=== PATIENT | male | born 1945 | race Caucasian/White ===

== ENCOUNTER 2022-07-07 11:08 | Inpatient (IN) ==
[2022-07-07] MEDS ORDERED: ASPIRIN CHEW 324 MG PO STA (11:28)
[2022-07-07 11:50] LABS: Basophils # (auto) 0.07 K/uL (0-0.2); Basophils % (auto) 0.7 %; Eosinophils # (auto) 0.16 K/uL (0-0.50); Eosinophils % (auto) 1.7 %; Hematocrit (blood only) 34.8 % (42.0-52.0); Hemoglobin 11.5 g/dl (14.0-18.0); Immature Granulocytes # (auto) 0.03 K/uL (0.01-0.20); Immature Granulocytes % (auto) 0.3 %; Lymphocytes # (auto) 1.24 K/uL (1.2-3.4); Lymphocytes % (auto) 12.8 %; Mean Corpuscular Hemoglobin 29.9 pg (25.0-34.0); Mean Corpuscular Volume 90.4 fL (80.0-100.0); Mean Platelet Volume 11.8 fL (9.4-12.4); Monocytes # (auto) 0.75 K/uL (0.11-0.59); Monocytes % (auto) 7.8 %; Neutrophils # (auto) 7.42 K/uL (1.40-6.50); Neutrophils % (auto) 76.7 %; Platelet Count 300 K/uL (130-400); RDW Coefficient of Variation 13.7 % (11.5-14.5); Red Blood Count 3.85 M/uL (4.70-6.10); White Blood Count 9.67 K/ul (4.8-10.8)
--- NOTE | 2022-07-07 11:53 | XRay Report ---
SINGLE VIEW CHEST CLINICAL HISTORY: Atypical chest pain. Dyspnea. FINDINGS: An AP, portable, upright chest radiograph is obtained. No prior studies are available for c omparison at the time of dictation. The patient is status post midline sternotomy. The heart is enlar ged. The pulmonary vasculature is noncongested. There is bibasilar scarring/atelectasis, left greater than right. No airspace consolidation or large pleural effusion is identified. Pleural thickening is seen in the lateral left lower lung. No pneumothorax is seen. The skeletal structures are osteopenic . The bony thorax is grossly intact. IMPRESSION: 1. Cardiomegaly with no acute cardiopulmonary abnormality. 2. Pleural thickening is seen laterally within the left mid to lower lung. This is of indeterminate e tiology and significance. Clinical correlation will be required. ACT 112: Negative or not required by law. Electronically signed by: Miguel Sandoval M.D. 07/07/2022 11:51 AM
[2022-07-07 12:54] LABS: Albumin Level 3.9 gm/dl (3.4-5.0); Bilirubin,Total 0.3 mg/dl (0.2-1.0); Calcium 8.9 mg/dl (8.5-10.1); Potassium 5.3 mmol/L (3.5-5.1)
[2022-07-07 13:00] LABS: Albumin Globulin Ratio 1.3 (0.9-2); BUN Creatinine Ratio 17.6 (10-20); Creatinine Clr Calc Pharmacy 17.3 ml/min; Est GFR (African American) 19.2 ml/min; Est GFR (Non-African American) 16.6 ml/min; Globulin 2.9 gm/dl (2.5-4.0); Total Protein 6.8 gm/dl (6.0-8.3)
[2022-07-07] MEDS ORDERED: SODIUM CHLORIDE 0.9% 1000ML 1,000 ML IV SCH (13:15)
[2022-07-07 13:16] LABS: Troponin I High Sensitivity 3246.8 pg/ml (0-20)
[2022-07-07] MEDS ORDERED: Heparin IV Adult Wt-Based Low-Dose WITH Bolus Protocol STA (13:17)
[2022-07-07] MEDS ORDERED: HEPARIN SOD (PORCINE) 1000 UNIT/ML IV ONE (13:33)
[2022-07-07] MEDS: HEPARIN SODIUM/DEXTROSE 25,000 UNITS/500 ML BAG IV SCH (13:37)
[2022-07-07 13:49] LABS: Partial Thromboplastin Ratio 0.9
[2022-07-07] MEDS ORDERED: NITROGLYCERIN 2% OINTMENT 30GM TUBE EXT ONE (14:04)
--- NOTE | 2022-07-07 14:14 | History & Physical Report ---
Date of Service July 07, 2022 Assessment & Plan (1) NSTEMI (non-ST elevated myocardial infarction): (2) CAD (coronary artery disease): (3) Hypertension: (4) Hyperlipidemia: (5) CKD (chronic kidney disease) stage 4, GFR 15-29 ml/min: (6) Statin intolerance: Plan This is a 77-year-old male who has significant PMH of CAD with history of CABG x3 in 2007 MEDINA to LAD, SVG to diagonal, SVG to OM, mitral and tricuspid regurgitation, HTN, CKD stage III-IV, with baseline creatinine of 3.6, history of renal artery stenosis status post stent, and HLD who presents to ED secondary to chest tightness/sob x 5 days. NSTEMI CAD hx of CABG in 2007 ( MEDINA to LAD, SVG to Diagonal, SVG to OM), hx of ROMINA x 2 in 2018 HTN HLD admit to PCU consult cardiology continue Heparin gtt received full dose ASA in ED currently CP free continue daily ASA, plavix, Metoprolol and pt takes repatha he states he no longer takes Statin due to leg pain will hold repatha while inpt, pt states he is due 07/08, he takes [id number] obtain echo cycle trop make npo after midnight in event intervention warranted CKD-4 baseline cr 3.6 bun/cr stable monitor, avoid nephrotoxic agents Hyperkalemia place on low k diet monitor bmp DVT ppx: IV heparin Dispo: admit to tele DNR/DNI PCP: A total of 75 minutes was spent with greater than 50% of that time personally viewing all current laboratory work and diagnostic imaging studies obtained in the ED. Additionally, I was able to view the patients past medication reconciliation and history with direct visualization in the patients chart. Included in the time above, a portion of that time was spent assessing the patient while discussing and collaborating with specialists, if necessary, and making medical decision making on treatment plan. All of the above was collaborated with Dr. Avina. Please see addendum for further details. History of Present Illness Chief Complaint: Chest tightness/SOB x 5 days. Primary Care Provider: David Narayanan, This is a 77-year-old male who has significant PMH of CAD with history of CABG x3 in 2007 MEDINA to LAD, SVG to diagonal, SVG to OM, mitral and tricuspid regurgitation, HTN, CKD stage III-IV, with baseline creatinine of 3.6, history of renal artery stenosis status post stent, and HLD who presents to ED secondary to chest tightness/sob x 5 days. Sx started Friday evening where he got chest tightness and sob. He further complains of heart racing. These sx would come and go and would resolve if just resting. Typically he walks 3-4 miles every day. Even with just minimal exertion he was getting chest tightness and sob. Sx seemed to be worse at night. Over past several months he noted to be more SOB with walking and even more so up hill. Now even with 100 yards he gets chest tightness. Sx are mostly substernal and does occasionally get pain to R arm. He describes pain Yesterday he went to mail box and had to stop ~ 20 times to catch breath. He denies any dizziness, lightheaded, syncope, vision changes. uri sx, cough, hemoptysis, n/v/d, abd pain, change in bowel or urinary habits. He was seen and evaluated at [facility] on Friday. They wanted him to be admitted; however they told him they couldn't do anything at this hospital due to no coronary intervention. [facility] get records to Dr. Humphreys. Of significance patient does have previous history of CABG x3 in 2007. He further underwent cardiac catheterization at [facility] on 02/25 which showed severe three-vessel cowlitz CAD with severe stenosis of vein graft to diagonal, severe stenosis of non-bypassed calcified right coronary, and patent MEDINA to LAD and patent vein graft to obtuse marginal. On 04/10/2028 he underwent a successful rotational atherectomy, angioplasty, stenting of the distal and mid right coronary artery with insertion of 2 drug-eluting stents. He is currently under the cardiac care of Dr. Humphreys. He does have history of CKD for which she follows Dr. Quiñones of nephrology. Last echocardiogram per recent cardiology note was on 08/30/2021 which revealed EF 50 to 54%, mild LVH, left atrium mildly enlarged, aortic valve mildly calcified, mild mitral regurg and mild tricuspid regurg. He previously was having leg pain, but this has since resolved after stopping statin and switching to repatha. In ED pt remained hemodynamically stable. He is currently chest pain free. His ECG revealed st and t wave changes in lateral leads. His initial trop was 3246.8, bun 60, cr 2.40 and K 5.3. He took a full strength asa today and was placed on IV heparin and nitro paste. Allergies Allergy/AdvReac Type Severity Reaction Status Date / Time No Known Drug Allergies Allergy Unknown . Verified 07/07/22 14:22 Home Medications Medication Instructions Recorded Confirmed Type amlodipine 10 mg tablet 10 mg PO QAM 06/01/19 07/07/22 History clopidogrel 75 mg tablet 75 mg PO QAM 06/01/19 07/07/22 History aspirin 81 mg chewable tablet 81 mg PO DAILY 07/07/22 07/07/22 History calcitriol 0.25 mcg capsule 0.125 mcg PO DAILY 07/07/22 07/07/22 History cholecalciferol (vitamin D3) 10 10 mcg PO Q OTHER DAY 07/07/22 07/07/22 History mcg (400 unit) capsule (Vitamin D3) evolocumab 140 mg/mL subcutaneous 140 mg subcut USEASDIRECTD 07/07/22 07/07/22 History pen injector (Repatha SureClick) metoprolol succinate 25 mg 25 mg PO DAILY 07/07/22 07/07/22 History tablet,extended release 24 hr Past Med/Surg History Medical History (Updated 07/07/22 @ 15:08 by Mary Mariscal PA-C) CAD (coronary artery disease) CABG 12 years ago, stents - last in 2017 CKD (chronic kidney disease) stage 4, GFR 15-29 ml/min Hyperlipidemia Hypertension Osteoarthritis 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> NO ISSUES > DOESN'T FOLLOW WITH ANYONE Statin intolerance Surgical History History of bronchoscopy 6 YRS AGO[place] [facility] [place] History of cardiac cath LAST ONE JAN 2018 WITH STENT History of carpal tunnel release RIGHT History of colonoscopy History of coronary artery bypass graft 3 TOTAL> 12 YRS AGO> [facility] > FOLLOWS DR. BUNN >RAJESH TOBIAS History of heart artery stent 3 TOTAL> LAST ONE IN JAN 2018 > [facility] [place] History of tooth extraction Hx of vasectomy Family History Other No significant family history Social History (Updated 07/07/22 @ 14:37 by Mary Mariscal PA-C) Smoking Status: Former smoker Smoking End Date: 50 years ago; Second Hand Exposure: Yes; Hx Alcohol Use: Yes Alcohol type: wine and hard liquor Hx Substance Use: No Preferred Language: Persian Communication Ability: Effective Psychiatric Technician Required: No Beliefs That Will Affect Care: None Current Living Situation: Spouse 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 Avina addendum for physical exam findings. Results & Data Results & Data ([facility]) Vital Signs (Past 12 Hours) Vital Signs Temp Pulse Resp BP Pulse Ox O2 Del Method 07/07/22 13:30 60 23 154/79 H 98 07/07/22 12:30 59 L 20 137/71 100 Room Air 07/07/22 12:00 62 16 136/74 99 Room Air 07/07/22 11:30 70 19 148/79 H 99 Room Air 07/07/22 11:30 71 07/07/22 11:22 88 18 176/80 H 99 Room Air 07/07/22 11:13 36.6 C 81 16 121/76 98 Room Air Diagnostic Findings Chest X-Ray 07/07/22 11:21 SINGLE VIEW CHEST CLINICAL HISTORY: Atypical chest pain. Dyspnea. FINDINGS: An AP, portable, upright chest radiograph is obtained. No prior studies are available for comparison at the time of dictation. The patient is status post midline sternotomy. The heart is enlarged. The pulmonary vasculature is noncongested. There is bibasilar scarring/atelectasis, left greater than right. No airspace consolidation or large pleural effusion is identified. Pleu ral thickening is seen in the lateral left lower lung. No pneumothorax is seen. The skeletal structures are osteopenic. The bony thorax is grossly intact. IMPRESSION: 1. Cardiomegaly with no acute cardiopulmonary abnormality. 2. Pleural thickening is seen laterally within the left mid to lower lung. This is of indeterminate etiology and significance. Clinical correlation will be required. ACT 112: Negative or not required by law. Electronically signed by: Miguel Sandoval M.D. 07/07/2022 11:51 AM Medications Administered Medication List Sodium Chloride (Nss 1000ml) 1,000 mls @ 125 mls/hr IV .Q8H USHA Stop: 08/06/22 13:14 Last Infusion: 07/07/22 14:29 Dose: 0 mls/hr Documented By: Admin: 07/07/22 14:19 Dose: 125 mls/hr Documented By: DARIANA Heparin Sodium/Dextrose (Heparin Sodium/Dextrose) 25,000 units in 500 mls @ 0.02 mls/hr IV .Q24H [facility]; Protocol Stop: 08/06/22 13:44 Last Admin: 07/07/22 13:37 Dose: 850 units/hr, 17 mls/hr Documented By: LIDIA Co-signed By: LORENZO Discontinued Medications Aspirin (Aspirin Chew 324 Mg) 324 mg PO NOW STA Stop: 07/07/22 11:29 Last Admin: 07/07/22 11:33 Dose: 324 mg Documented By: DARIANA Heparin Sodium (Porcine) (Heparin Sod (Porcine) 1000 Unit/Ml) 1 units IV NOW ONE Stop: 07/07/22 13:34 Last Admin: 07/07/22 13:38 Dose: 4,000 units Documented By: LIDIA Co-signed By: LORENZO Nitroglycerin (Nitroglycerin 2% Ointment 30gm Tube) 0.5 inch EXT NOW ONE Stop: 07/07/22 14:05 Last Admin: 07/07/22 14:17 Dose: 0.5 inch Documented By: DARIANA ECG Rate (beats per minute): 67 Rhythm: normal sinus Findings: + RBBB Additional Comments: lateral ST and T wave changes I, AVL, V5, V6 COVID-19 Results Results COVID-19 Adm Lab Results: RBC 3.85 M/uL (4.70-6.10) L 07/07/22 WBC 9.67 K/ul (4.8-10.8) 07/07/22 Hgb 11.5 g/dl (14.0-18.0) L 07/07/22 Hct 34.8 % (42.0-52.0) L 07/07/22 Plt Count 300 K/uL (130-400) 07/07/22 Neutrophils (%) (Auto) 76.7 % 07/07/22 Lymphocytes (%) (Auto) 12.8 % 07/07/22 Monocytes # (Auto) 0.75 K/uL (0.11-0.59) H 07/07/22 Eosinophils # (Auto) 0.16 K/uL (0-0.50) 07/07/22 Immature Granulocyte % (Auto) 0.3 % 07/07/22 Neutrophils # (Auto) 7.42 K/uL (1.40-6.50) H 07/07/22 Lymphocytes # (Auto) 1.24 K/uL (1.2-3.4) 07/07/22 Monocytes # (Auto) 0.75 K/uL (0.11-0.59) H 07/07/22 Eosinophils # (Auto) 0.16 K/uL (0-0.50) 07/07/22 Basophils # (Auto) 0.07 K/uL (0-0.2) 07/07/22 Immature Granulocyte # (Auto) 0.03 K/uL (0.01-0.20) 3 Na 141 mmol/L (136-145) 07/07/22 K 5.3 mmol/L (3.5-5.1) H 07/07/22 Cl 111 mmol/L (98-107) H 07/07/22 CO2 22 mmol/L (21-32) 07/07/22 Anion Gap 8 (3-11) 07/07/22 BUN 60 mg/dl (6-23) H 07/07/22 Creatinine 3.40 mg/dl (0.6-1.4) H 07/07/22 BUN/Creatinine Ratio 17.6 (10-20) 07/07/22 Glucose Level 110 mg/dl (70-99(Fasting)) H 07/07/22 Ca 8.9 mg/dl (8.5-10.1) 07/07/22 Total Bilirubin 0.3 mg/dl (0.2-1.0) 07/07/22 AST/SGOT 24 U/L (13-39) 07/07/22 ALT/SGPT 13 U/L (7-52) 07/07/22 Alkaline Phosphatase 58 U/L (34-104) 07/07/22 Total Protein 6.8 gm/dl (6.0-8.3) 07/07/22 Albumin 3.9 gm/dl (3.4-5.0) 07/07/22 Globulin 2.9 gm/dl (2.5-4.0) 07/07/22 Albumin/Globulin Ratio 1.3 (0.9-2) 07/07/22 PTT 25.0 Seconds (21.0-31.0) 07/07/22 SARS-CoV-2, RNA, NAAT NEGATIVE (NEGATIVE) 07/07/22 Chest X-Ray 07/07/22 Code Status & VTE Plan Code Status DNR/DNI Supervising Physician Co-Signing Physician Notes Patient seen and examined independently. Discussed with Margie Mariscal PA-C Past medical history of CAD status post CABG in 2007, ROMINA in 2018, CKD presents to the hospital with chest pain ongoing for last 5 days which has gradually increased in frequency. On presentation to the ED, he was hypertensive, saturating well in room air and afebrile. EKG shows normal sinus rhythm with right bundle branch block(chronic), ST depression in T wave changes in lateral leads. High-sensitivity troponin elevated to 3246 Chest x-ray personally reviewed; no signs of fluid overload. Creatinine at baseline of 3.6. Slightly hyperkalemic with a potassium of 5.2. He was started on heparin drip for NSTEMI. Cardiology was consulted. He was also started on Nitropaste. On examination; Constitutional: WD/WN, vitals as above, NAD, sitting up in bed, pleasant, conversing easily Respiratory: Bilateral vesicular breath sound Cardiovascular: RRR, no murmur, no edema Vessels: no JVD or carotid bruit Chest: Scar present Abdomen: normal bowel sounds, soft, nontender, no hepatosplenomegaly Musculoskeletal: no cyanosis or clubbing, extremities motor strength 5/5 Skin: no rashes, warm and dry normal turgor Neurologic: PERRL, EOMI, accommodation nl, no face palsy, no dysarthria CN's II- XI intact bilaterally and moves all extremities Psychiatric: A+Ox3, euthymic affect Lymphatic: no cervical or axillary lymphadenopathy : deferred Assessment/plan NSTEMIstarted on heparin drip. Cardiology consulted and informed; no further recommendation at present. Echocardiogram. Continue on aspirin, Plavix and metoprolol. Obtain lipid panel in a.m.; patient off statin presently. Trend troponin. N.p.o. from midnight for possible intervention. Hyperkalemialow potassium diet. BMP in AM. CKDbaseline creatinine of 3.6. Avoid nephrotoxic agent.
[2022-07-07] MEDS ORDERED: POLYETHYLENE (MIRALAX) 17 GM PACK PO PRN (15:28)
[2022-07-07] MEDS ORDERED: ONDANSETRON INJ 2 MG/ML 2 ML VIAL IV PRN (15:28)
--- NOTE | 2022-07-07 17:24 | Emergency Department Note ---
Impression & Plan NSTEMI (non-ST elevated myocardial infarction), CKD (chronic kidney disease) stage 4, GFR 15-29 ml/min ED Provider Note CHIEF COMPLAINT: Shortness of breath HISTORY OF PRESENT ILLNESS: This 77-year-old patient with a history of CAD status post CABG and stenting x3, chronic kidney disease presents to the emergency department with complaints of increased shortness of breath. He states he went to an outside hospital 2 days ago and was told he was likely suffering from heart attack or unstable angina. The patient was told that they did not have a catheterization lab, thus he decided to go home. Per records and the patient's hands, his high-sensitivity troponin was 1900. Patient states he does not have any pain at this time but rather just shortness of breath. He does feel that his breathing symptoms have gotten worse. 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 He denies any recent illnesses, fever, cough, vomiting or diarrhea. REVIEW OF SYSTEMS: A review of systems was performed with positives and pertinent negatives listed in the history of present illness. 10 systems were reviewed and are otherwise negative. ALLERGIES: see below MEDICATIONS: see below PMH: see below SOCIAL HISTORY: see below DDx:Cardiac ischemia, aortic dissection, pulmonary embolism, pneumothorax, p neumonia, pericarditis, myocarditis, esophageal rupture, GERD, cholecystitis, pancreatitis, musculoskeletal, as well as other pathologies. PHYSICAL EXAM: Vital signs reviewed. General: Well-appearing 77-year-old male, in no significant distress. HEENT: No scleral icterus, PERRLA, neck supple. Moist mucous membranes. Cardiovascular: Regular rate and rhythm, no extra sounds. Systolic ejection mu rmur. Pulmonary: Clear to auscultation bilaterally, normal work of breathing. Abdomen: Soft, nontender, nondistended, positive bowel sounds. Musculoskeletal: Atraumatic, no peripheral edema. Neurologic: Patient awake alert and oriented x 3, speech is clear Skin: Warm, dry, no rash EMERGENCY DEPARTMENT COURSE/MDM: This patient was evaluated and appeared to be in no significant distress. IV access was obtained and laboratory work was drawn. Records from [facility] were attempted however they were only able to send a chest x-ray read which was reviewed. Patient's EKG reveals no evidence of ST elevation, there are nonspecific ST changes laterally. Patient was given 324 mg of aspirin to chew. Chest x-ray was performed and reveals no evidence of acute failure. Laboratory work reveals a troponin of 3246 and a creatinine of 3.4. [facility] records indicate this is the patient's baseline. I discussed the case with [facility] cardiology, Dr. Giraldo. As the patient does not have any pain at this time, we will start heparin drip and admit for further management. Patient did remain stable in the emergency department. He is family were informed of the findings and plan. The [facility] hospitalist was consulted for further management. MONITORING: An order for cardiac monitoring was placed and the patient is noted to be in a normal sinus rhythm at 70 beats per minute. RADIOLOGY: Chest x-ray to my interpretation reveals no evidence of focal lung consolidation or failure. Otherwise defer to radiology EKG: EKG to my interpretation reveals normal sinus rhythm at 67 bpm, right bundle branch block. Previous inferior infarct, lateral ST/T wave abnormality. DISPOSITION: Admission I have personally spent greater than 40 minutes of critical care time in the dir ect management of this patient. This includes bedside care, interpretation of diagnostic studies, and testing, discussion with consultants, patient, and family members, and other required patient management activities. This 40 minutes is in excess of all separately billable procedures. 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 Verified 07/07/22 14:22 Home Meds Home Medications Medication Instructions Recorded Confirmed amlodipine 10 mg tablet 10 mg PO QAM 06/01/19 07/07/22 clopidogrel 75 mg tablet 75 mg PO QAM 06/01/19 07/07/22 aspirin 81 mg chewable tablet 81 mg PO DAILY 07/07/22 07/07/22 calcitriol 0.25 mcg capsule 0.125 mcg PO DAILY 07/07/22 07/07/22 cholecalciferol (vitamin D3) 10 10 mcg PO Q OTHER DAY 07/07/22 07/07/22 mcg (400 unit) capsule (Vitamin D3) evolocumab 140 mg/mL subcutaneous 140 mg subcut USEASDIRECTD 07/07/22 07/07/22 pen injector (Repatha SureClick) metoprolol succinate 25 mg 25 mg PO DAILY 07/07/22 07/07/22 tablet,extended release 24 hr Results & Data (ED) Vital Signs Vital Signs - 24 hr 07/07/22 11:13 07/07/22 11:22 07/07/22 11:30 Temperature 36.6 C Temperature Source Temporal Artery Scan Pulse Rate 81 88 71 Respiratory Rate 16 18 Respiratory Effort / Characteristics Non-Labored Respiratory Depth Normal Blood Pressure 121/76 176/80 H Blood Pressure Mean 91 112 Pulse Oximetry 98 99 Oxygen Delivery Method Room Air Room Air Sepsis Recent Fever Within 48 Hours No Sepsis New/Unexplained Change in Mental Status No Sepsis Action Taken by Nursing No Action Required 07/07/22 11:30 07/07/22 12:00 07/07/22 12:30 Temperature Temperature Source Pulse Rate 70 62 59 L Respiratory Rate 19 16 20 Respiratory Effort / Characteristics Respiratory Depth Blood Pressure 148/79 H 136/74 137/71 Blood Pressure Mean 102 94 93 Pulse Oximetry 99 99 100 Oxygen Delivery Method Room Air Room Air Room Air Sepsis Recent Fever Within 48 Hours Sepsis New/Unexplained Change in Mental Status Sepsis Action Taken by Nursing 07/07/22 13:30 Temperature Temperature Source Pulse Rate 60 Respiratory Rate 23 Respiratory Effort / Characteristics Respiratory Depth Blood Pressure 154/79 H Blood Pressure Mean 104 Pulse Oximetry 98 Oxygen Delivery Method Sepsis Recent Fever Within 48 Hours Sepsis New/Unexplained Change in Mental Status Sepsis Action Taken by Long-Term Medications Current Medication List: was personally reviewed by me Laboratory Data Attestation: I reviewed the patient's lab results. 07/07/22 11:07/07/22 11: Lab Results 07/07/22 07/07/22 07/07/22 Range/Units 11:23 11:23 11:23 WBC 9.67 (4.8-10.8) K/ul RBC 3.85 L (4.70-6.10) M/uL Hgb 11.5 L (14.0-18.0) g/dl Hct 34.8 L (42.0-52.0) % MCV 90.4 (80.0-100.0) fL MCH 29.9 (25.0-34.0) pg MCHC 33.0 (32.0-36.0) g/dL RDW Std Deviation 46.0 (36.4-46.3) fL RDW Coeff of [place] 13.7 (11.5-14.5) % Plt Count 300 (130-400) K/uL MPV 11.8 (9.4-12.4) fL Immature Gran % (Auto) 0.3 % Neut % (Auto) 76.7 % Lymph % (Auto) 12.8 % [place] % (Auto) 7.8 % Eos % (Auto) 1.7 % Baso % (Auto) 0.7 % Neut # (Auto) 7.42 H (1.40-6.50) K/uL Lymph # (Auto) 1.24 (1.2-3.4) K/uL [place] # (Auto) 0.75 H (0.11-0.59) K/uL Eos # (Auto) 0.16 (0-0.50) K/uL Baso # (Auto) 0.07 (0-0.2) K/uL Immature Gran # (Auto) 0.03 (0.01-0.20) K/uL APTT 25.0 (21.0-31.0) Seconds PTT Ratio 0.9 Sodium 141 (136-145) mmol/L Potassium 5.3 H (3.5-5.1) mmol/L Chloride 111 H (98-107) mmol/L Carbon Dioxide 22 (21-32) mmol/L Anion Gap 8 (3-11) BUN 60 H (6-23) mg/dl Creatinine 3.40 H (0.6-1.4) mg/dl Est Cr Clr Drug Dosing 17.3 ml/min Est GFR ( Amer) 19.2 ml/min Est GFR (Non-Af Amer) 16.6 ml/min BUN/Creatinine Ratio 17.6 (10-20) Glucose 110 H (70-99(Fasting)) mg/dl Calcium 8.9 (8.5-10.1) mg/dl Total Bilirubin 0.3 (0.2-1.0) mg/dl AST 24 (13-39) U/L ALT 13 (7-52) U/L Alkaline Phosphatase 58 (34-104) U/L Troponin I High Sens 3246.8 H* (0-20) pg/ml Total Protein 6.8 (6.0-8.3) gm/dl Albumin 3.9 (3.4-5.0) gm/dl Globulin 2.9 (2.5-4.0) gm/dl Albumin/Globulin Ratio 1.3 (0.9-2) Lipase 222 H (11-82) U/L SARS-CoV-2, RNA, NAAT (NEGATIVE) 07/07/22 Range/Units 11:37 WBC (4.8-10.8) K/ul RBC (4.70-6.10) M/uL Hgb (14.0-18.0) g/dl Hct (42.0-52.0) % MCV (80.0-100.0) fL MCH (25.0-34.0) pg MCHC (32.0-36.0) g/dL RDW Std Deviation (36.4-46.3) fL RDW Coeff of [place] (11.5-14.5) % Plt Count (130-400) K/uL MPV (9.4-12.4) fL Immature Gran % (Auto) % Neut % (Auto) % Lymph % (Auto) % [place] % (Auto) % Eos % (Auto) % Baso % (Auto) % Neut # (Auto) (1.40-6.50) K/uL Lymph # (Auto) (1.2-3.4) K/uL [place] # (Auto) (0.11-0.59) K/uL Eos # (Auto) (0-0.50) K/uL Baso # (Auto) (0-0.2) K/uL Immature Gran # (Auto) (0.01-0.20) K/uL APTT (21.0-31.0) Seconds PTT Ratio Sodium (136-145) mmol/L Potassium (3.5-5.1) mmol/L Chloride (98-107) mmol/L Carbon Dioxide (21-32) mmol/L Anion Gap (3-11) BUN (6-23) mg/dl Creatinine (0.6-1.4) mg/dl Est Cr Clr Drug Dosing ml/min Est GFR ( Amer) ml/min Est GFR (Non-Af Amer) ml/min BUN/Creatinine Ratio (10-20) Glucose (70-99(Fasting)) mg/dl Calcium (8.5-10.1) mg/dl Total Bilirubin (0.2-1.0) mg/dl AST (13-39) U/L ALT (7-52) U/L Alkaline Phosphatase (34-104) U/L Troponin I High Sens (0-20) pg/ml Total Protein (6.0-8.3) gm/dl Albumin (3.4-5.0) gm/dl Globulin (2.5-4.0) gm/dl Albumin/Globulin Ratio (0.9-2) Lipase (11-82) U/L SARS-CoV-2, RNA, NAAT NEGATIVE (NEGATIVE) Administered Medications Heparin Sodium/Dextrose (Heparin Sodium/Dextrose) 25,000 units in 500 mls @ 17 mls/hr IV .Q24H [facility]; Protocol Stop: 08/06/22 13:44 Last Admin: 03/12/23 13:37 Dose: 850 units/hr, 17 mls/hr Documented By: LIDIA Co-signed By: LORENZO Discontinued Medications Aspirin (Aspirin Chew 324 Mg) 324 mg PO NOW STA Stop: 07/07/22 11:29 Last Admin: 07/07/22 11:33 Dose: 324 mg Documented By: DARIANA Heparin Sodium (Porcine) (Heparin Sod (Porcine) 1000 Unit/Ml) 1 units IV NOW ONE Stop: 07/07/22 13:34 Last Admin: 07/07/22 13:38 Dose: 4,000 units Documented By: LIDIA Co-signed By: LORENZO Sodium Chloride (Nss 1000ml) 1,000 mls @ 125 mls/hr IV .Q8H US[facility] Stop: 08/06/22 13:14 Last Infusion: 07/07/22 15:29 Dose: 0 mls/hr Documented By: Infusion: 07/07/22 14:29 Dose: 0 mls/hr Documented By: Admin: 07/07/22 14:19 Dose: 125 mls/hr Documented By: DARIANA Nitroglycerin (Nitroglycerin 2% Ointment 30gm Tube) 0.5 inch EXT NOW ONE Stop: 07/07/22 14:05 Last Admin: 07/07/22 14:17 Dose: 0.5 inch Documented By: DARIANA Imaging Data Radiologist's Impression: Chest X-Ray 07/07/22 11:21 SINGLE VIEW CHEST CLINICAL HISTORY: Atypical chest pain. Dyspnea. FINDINGS: An AP, portable, upright chest radiograph is obtained. No prior studies are available for comparison at the time of dictation. The patient is status post midline sternotomy. The heart is enlarged. The pulmonary vasculature is noncongested. There is bibasilar scarring/atelectasis, left greater than right. No airspace consolidation or large pleural effusion is identified. Pleural thickening is seen in the lateral left lower lung. No pneumothorax is seen. The skeletal structures are osteopenic. The bony thorax is grossly intact. IMPRESSION: 1. Cardiomegaly with no acute cardiopulmonary abnormality. 2. Pleural thickening is seen laterally within the left mid to lower lung. This is of indeterminate etiology and significance. Clinical correlation will be required. ACT 112: Negative or not required by law. Electronically signed by: Miguel Sandoval M.D. 07/07/2022 11:51 AM Discharge Plan Visit Data Chief Complaint: Chest Pain Stated Complaint: CHEST PAIN, SHORTNESS OF BREATH ED Provider: Caitlyn Keene Discharge Problem: NSTEMI (non-ST elevated myocardial infarction), CKD (chronic kidney disease) stage 4, GFR 15-29 ml/min Patient Disposition: Admitted As Inpatient Discharge Instructions Interventions: ED Discharge Assessment Last Done: 07/07/22 15:30
[2022-07-07 20:42] LABS: Partial Thromboplastin Ratio 1.7
[2022-07-07 20:43] LABS: Partial Thromboplastin Time 48.1 Seconds (21.0-31.0)
[2022-07-08 07:22] LABS: Basophils # (auto) 0.05 K/uL (0-0.2); Basophils % (auto) 0.7 %; Eosinophils # (auto) 0.19 K/uL (0-0.50); Eosinophils % (auto) 2.8 %; Hematocrit (blood only) 32.1 % (42.0-52.0); Hemoglobin 10.7 g/dl (14.0-18.0); Immature Granulocytes # (auto) 0.02 K/uL (0.01-0.20); Immature Granulocytes % (auto) 0.3 %; Lymphocytes % (auto) 20.8 %; Mean Corpuscular Hgb Conc 33.3 g/dL (32.0-36.0); Mean Corpuscular Volume 89.9 fL (80.0-100.0); Mean Platelet Volume 11.9 fL (9.4-12.4); Monocytes # (auto) 0.62 K/uL (0.11-0.59); Monocytes % (auto) 9.2 %; Neutrophils # (auto) 4.45 K/uL (1.40-6.50); Neutrophils % (auto) 66.2 %; Platelet Count 265 K/uL (130-400); RDW Coefficient of Variation 13.7 % (11.5-14.5); Red Blood Count 3.57 M/uL (4.70-6.10); White Blood Count 6.73 K/ul (4.8-10.8)
[2022-07-08] MEDS: ACETAMINOPHEN 325 MG TAB PO PRN (07:28)
[2022-07-08] MEDS: CALCITRIOL 0.25 MCG CAPSULE PO SCH (07:30)
[2022-07-08] MEDS: ASPIRIN 81 MG CHEW PO SCH (07:30)
[2022-07-08] MEDS: CLOPIDOGREL BISULFATE 75 MG TAB PO SCH (07:31)
[2022-07-08] MEDS: METOPROLOL SUCC 25MG EXT REL TAB PO SCH ×2 (07:31→20:25)
[2022-07-08 07:37] LABS: Albumin Globulin Ratio 1.3 (0.9-2); Albumin Level 3.5 gm/dl (3.4-5.0); BUN Creatinine Ratio 18.3 (10-20); Bilirubin,Total 0.3 mg/dl (0.2-1.0); Calcium 8.3 mg/dl (8.5-10.1); Chol HDL Ratio 2.9 (0-5); Creatinine Clr Calc Pharmacy 16.5 ml/min; Est GFR (African American) 18.2 ml/min; Est GFR (Non-African American) 15.7 ml/min; Globulin 2.7 gm/dl (2.5-4.0); Potassium 5.2 mmol/L (3.5-5.1); Total Protein 6.2 gm/dl (6.0-8.3)
[2022-07-08 07:46] LABS: Partial Thromboplastin Ratio 1.6
[2022-07-08 07:49] LABS: Troponin I High Sensitivity 3273.8 pg/ml (0-20)
[2022-07-08 08:46] LABS: Estimated Average Glucose 131 mg/dl; Hemoglobin A1C 6.2 % (4.5-5.6)
[2022-07-08] MEDS ORDERED: amLODIPine BESYLATE 5 MG TAB PO SCH (09:00)
[2022-07-08] MEDS ORDERED: CHOLECALCIFEROL 400 UNITS 10 MCG TAB PO SCH (09:00)
--- NOTE | 2022-07-08 10:08 | Cardiology Consultation ---
Date of Consultation July 08, 2022 Assessment & Plan (1) NSTEMI (non-ST elevated myocardial infarction): (2) History of coronary artery bypass graft: (3) CKD (chronic kidney disease) stage 4, GFR 15-29 ml/min: (4) Renovascular hypertension: (5) Hyperlipidemia: (6) Statin intolerance: Plan Patient is a 77-year-old male with very complex past history of ischemic heart disease with prior coronary bypass grafting in 2007, coronary intervention 2017 presents with symptoms of crescendo angina and worsening complaints of chest pain and shortness of breath of at least 5 days duration. Patient noted multiple episodes of sustained discomfort after episodes of exertion Troponins consistent with non-ST segment elevation myocardial infarction EKG with chronic right bundle branch block but more pronounced lateral ST depression on presentation Echocardiogram with similar ejection fraction to past studies though with more pronounced by description wall motion abnormalities inferior posteriorly. Patient multiple culprits for possible complaints including prior coronary inter vention vessel right coronary artery 2017 as well as vein graft occlusion of OM or diagonal. I have discussed options and management with patient. Choices include conservative medical therapy versus proceeding to diagnostic coronary angiography and intervention if warranted. Patient would be resolved or any interventions or catheterizations performed at tertiary care center [place] at site of previous interventions. Potential risks of worsening renal insufficiency discussed and patient notes prior desires to avoid dialysis at all cost. After shared decision making we will proceed with initial medical therapies however if symptoms recur or exercise capacity not improved posttreatment with transfer to [place] for further investigation Plan currently continue IV heparin at least 48 hours, continue aspirin and clopidogrel Increase metoprolol succinate slightly 25 mg a.m. 12.5 mg p.m. Add low-dose nitrates History of Present Illness Reason for Consultation: Non-ST segment elevation myocardial infarction Requesting Physician: Dr. Proctor Attending Physician: Zachary Proctor MD History of Present Illness Patient is a 77-year-old male with complex history of ischemic heart disease and vascular disease with issues as follows 1. Diffuse coronary artery disease status post coronary bypass grafting, 2007 MEDINA graft to the LAD, saphenous vein graft to the diagonal saphenous vein graft to the obtuse marginal 2. Coronary intervention for angina pectoris March 2018 undergoing rotational atherectomy angioplasty and stenting of the distal and mid right coronary artery 3. Coronary angiography January 2018, severe three-vessel disease with severe stenosis of the vein graft to the diagonal, severe stenosis of right coronary artery addressed as above. Patent vein graft to the obtuse marginal, patent MEDINA graft to the LAD 4. Renovascular hypertension status post renal artery stenting 5. Dyslipidemia with statin intolerance on PCSK9 inhibitor 6. Chronic kidney disease stage IIIIV Patient presents this admission noting mild chronic restriction abilities secondary underlying ischemic heart disease but generally very active walking several days per week, splitting firewood etc. Last week on Friday began experiencing worsening symptoms in comparison to the past month of increasing exertional dyspnea and chest pressure. Symptoms progressed to the point where limiting activity with only short distances of exertion with marked dyspnea and chest pressure. Symptoms were severe by his own description. Extended episode relieved after several hours in recliner with blood pressure and heart rate variable. He initially sought management at [place] emergency room where troponins were notably elevated. He left AMA and represented to [facility] on urging. Currently comfortable no further chest pains or shortness of breath since admission though sedentary. No fevers chills or unexplained infections No acute weight gain or edema. No bleeding difficulties melena hematochezia dysuria hematuria No change in medications other than the initiation of Repatha several months past No history of TIA or stroke. 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 Verified 07/07/22 14:22 Home Medications Medication Instructions Recorded Confirmed Type amlodipine 10 mg tablet 10 mg PO QAM 06/01/19 07/07/22 History clopidogrel 75 mg tablet 75 mg PO QAM 06/01/19 07/07/22 History aspirin 81 mg chewable tablet 81 mg PO DAILY 07/07/22 07/07/22 History calcitriol 0.25 mcg capsule 0.125 mcg PO DAILY 07/07/22 07/07/22 History cholecalciferol (vitamin D3) 10 10 mcg PO Q OTHER DAY 07/07/22 07/07/22 History mcg (400 unit) capsule (Vitamin D3) evolocumab 140 mg/mL subcutaneous 140 mg subcut USEASDIRECTD 07/07/22 07/07/22 History pen injector (Repatha Rosalia) metoprolol succinate 25 mg 25 mg PO DAILY 07/07/22 07/07/22 History tablet,extended release 24 hr Patient History Medical History (Updated 07/08/22 @ 10:25 by Russ Martin MD) CAD (coronary artery disease) CABG 12 years ago, stents - last in 2017 CKD (chronic kidney disease) stage 4, GFR 15-29 ml/min Hyperlipidemia Hypertension Osteoarthritis 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> NO ISSUES > DOESN'T FOLLOW WITH ANYONE Statin intolerance Surgical History (Updated 07/08/22 @ 10:25 by Russ Martin MD) History of bronchoscopy 6 YRS AGO> [facility] > BENIGN GROWTH History of cardiac cath LAST ONE JAN 2018 WITH STENT History of carpal tunnel release RIGHT History of colonoscopy History of coronary artery bypass graft 3 TOTAL> 2007> [facility] > MEDINA to LAD, saphenous vein graft to diagonal, saphenous vein graft OM History of heart artery stent 3 TOTAL> LAST ONE IN JAN 2018 > [facility] History of tooth extraction Hx of vasectomy Family History Other No significant family history Social History Smoking Status: Former smoker Smoking End Date: 50 years ago; Second Hand Exposure: Yes; Hx Alcohol Use: Yes Alcohol type: wine and hard liquor Hx Substance Use: No Preferred Language: Swedish Communication Ability: Effective Restaurant Service Manager Required: No Beliefs That Will Affect Care: None Current Living Situation: Spouse 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 Other Information That Helps Us Care for You: No Feels Safe at Home: Yes Safety Concerns: Feels Safe At This Time Assistive Devices: Denture - Upper, Denture - Lower, Glasses and Hearing Aid - Left Review of Systems Review of Systems: All systems reviewed & are unremarkable except as noted in HPI & below Physical Exam Constitutional: WD/WN, vitals as above no acute distress Eyes: PERRL, conjunctivae normal, anicteric sclerae ENMT: external ear and nose normal, oropharynx normal Neck: trachea midline, no thyromegaly Respiratory: normal respiratory effort, lungs clear to auscultation Cardiovascular: Rate/Rhythm: regular rate and regular rhythm Heart Sounds: + murmur (Grade 2/6 systolic murmur heard throughout the precordium no diastolic) Vessels: no JVD Extremities: no edema Gastrointestinal (Abdomen): normal bowel sounds, soft, nontender, no hepatosplenomegaly Musculoskeletal: no cyanosis or clubbing, extremities motor strength 5/5 Psychiatric: A+Ox3, euthymic affect Results & Data ([facility]) Vital Signs (Past 12 Hours) Vital Signs Temp Pulse Pulse Resp BP BP Pulse Ox 07/08/22 07:57 07/08/22 07:14 70 07/08/22 07:09 36.8 C 66 18 122/67 97 07/08/22 04:12 36.8 C 64 16 117/61 98 07/07/22 22:05 54 L 07/07/22 23:20 36.7 C 61 18 115/66 97 O2 Del Method 07/08/22 07:57 Room Air 07/08/22 07:14 07/08/22 07:09 Room Air 07/08/22 04:12 Room Air 07/07/22 22:05 07/07/22 23:20 Room Air Laboratory Results Laboratory Results - last 24 hr 07/07/22 07/07/22 07/07/22 11:23 11:23 11:23 WBC 9.67 RBC 3.85 L Hgb 11.5 L Hct 34.8 L MCV 90.4 MCH 29.9 MCHC 33.0 RDW Std Deviation 46.0 RDW Coeff of [place] 13.7 Plt Count 300 MPV 11.8 Immature Gran % (Auto) 0.3 Neut % (Auto) 76.7 Lymph % (Auto) 12.8 Mckean % (Auto) 7.8 Eos % (Auto) 1.7 Baso % (Auto) 0.7 Neut # (Auto) 7.42 H Lymph # (Auto) 1.24 Mckean # (Auto) 0.75 H Eos # (Auto) 0.16 Baso # (Auto) 0.07 Immature Gran # (Auto) 0.03 APTT 25.0 PTT Ratio 0.9 Sodium 141 Potassium 5.3 H Chloride 111 H Carbon Dioxide 22 Anion Gap 8 BUN 60 H Creatinine 3.40 H Est Cr Clr Drug Dosing 17.3 Est GFR ( Amer) 19.2 Est GFR (Non-Af Amer) 16.6 BUN/Creatinine Ratio 17.6 Glucose 110 H Estimat Average Glucose Hemoglobin A1c Calcium 8.9 Magnesium Total Bilirubin 0.3 AST 24 ALT 13 Alkaline Phosphatase 58 Troponin I High Sens 3246.8 H* Total Protein 6.8 Albumin 3.9 Globulin 2.9 Albumin/Globulin Ratio 1.3 Triglycerides Cholesterol LDL Cholesterol, Calc VLDL Cholesterol, Calc HDL Cholesterol Cholesterol/HDL Ratio Lipase 222 H SARS-CoV-2, RNA, NAAT 07/07/22 07/07/22 07/07/22 11:37 15:12 19:45 WBC RBC Hgb Hct MCV MCH MCHC RDW Std Deviation RDW Coeff of [place] Plt Count MPV Immature Gran % (Auto) Neut % (Auto) Lymph % (Auto) Mckean % (Auto) Eos % (Auto) Baso % (Auto) Neut # (Auto) Lymph # (Auto) Mckean # (Auto) Eos # (Auto) Baso # (Auto) Immature Gran # (Auto) APTT 48.1 H* PTT Ratio 1.7 Sodium Potassium Chloride Carbon Dioxide Anion Gap BUN Creatinine Est Cr Clr Drug Dosing Est GFR ( Amer) Est GFR (Non-Af Amer) BUN/Creatinine Ratio Glucose Estimat Average Glucose Hemoglobin A1c Calcium Magnesium Total Bilirubin AST ALT Alkaline Phosphatase Troponin I High Sens 3598.7 H* Total Protein Albumin Globulin Albumin/Globulin Ratio Triglycerides Cholesterol LDL Cholesterol, Calc VLDL Cholesterol, Calc HDL Cholesterol Cholesterol/HDL Ratio Lipase SARS-CoV-2, RNA, NAAT NEGATIVE 07/07/22 07/08/22 07/08/22 19:45 01:54 07:03 WBC RBC Hgb Hct MCV MCH MCHC RDW Std Deviation RDW Coeff of [place] Plt Count MPV Immature Gran % (Auto) Neut % (Auto) Lymph % (Auto) Mckean % (Auto) Eos % (Auto) Baso % (Auto) Neut # (Auto) Lymph # (Auto) Mckean # (Auto) Eos # (Auto) Baso # (Auto) Immature Gran # (Auto) APTT PTT Ratio Sodium 139 Potassium 5.2 H Chloride 113 H Carbon Dioxide 20 L Anion Gap 6 BUN 65 H Creatinine 3.56 H Est Cr Clr Drug Dosing 16.5 Est GFR ( Amer) 18.2 Est GFR (Non-Af Amer) 15.7 BUN/Creatinine Ratio 18.3 Glucose 94 Estimat Average Glucose Hemoglobin A1c Calcium 8.3 L Magnesium 2.0 Total Bilirubin 0.3 AST 21 ALT 13 Alkaline Phosphatase 53 Troponin I High Sens 3536.6 H* 3874.0 H* 3273.8 H* Total Protein 6.2 Albumin 3.5 Globulin 2.7 Albumin/Globulin Ratio 1.3 Triglycerides 90 Cholesterol 115 LDL Cholesterol, Calc 57 VLDL Cholesterol, Calc 18 HDL Cholesterol 40 Cholesterol/HDL Ratio 2.9 Lipase SARS-CoV-2, RNA, NAAT 07/08/22 07/08/22 07/08/22 07:03 07:03 07:03 WBC 6.73 RBC 3.57 L Hgb 10.7 L Hct 32.1 L MCV 89.9 MCH 30.0 MCHC 33.3 RDW Std Deviation 45.0 RDW Coeff of [place] 13.7 Plt Count 265 MPV 11.9 Immature Gran % (Auto) 0.3 Neut % (Auto) 66.2 Lymph % (Auto) 20.8 Mckean % (Auto) 9.2 Eos % (Auto) 2.8 Baso % (Auto) 0.7 Neut # (Auto) 4.45 Lymph # (Auto) 1.40 Mckean # (Auto) 0.62 H Eos # (Auto) 0.19 Baso # (Auto) 0.05 Immature Gran # (Auto) 0.02 APTT 45.0 H PTT Ratio 1.6 Sodium Potassium Chloride Carbon Dioxide Anion Gap BUN Creatinine Est Cr Clr Drug Dosing Est GFR ( Amer) Est GFR (Non-Af Amer) BUN/Creatinine Ratio Glucose Estimat Average Glucose 131 Hemoglobin A1c 6.2 H Calcium Magnesium Total Bilirubin AST ALT Alkaline Phosphatase Troponin I High Sens Total Protein Albumin Globulin Albumin/Globulin Ratio Triglycerides Cholesterol LDL Cholesterol, Calc VLDL Cholesterol, Calc HDL Cholesterol Cholesterol/HDL Ratio Lipase SARS-CoV-2, RNA, NAAT Diagnostic Findings Echocardiogram 07/07/2022 Inferior posterior wall motion abnormality with mildly reduced ejection fraction EF 50-55% Moderate aortic sclerosis and mild to moderate mitral insufficiency
[2022-07-08] MEDS: ISOSORBIDE DINITRATE 20 MG TAB PO SCH (12:08)
--- NOTE | 2022-07-08 13:36 | Hospitalist Progress Note ---
Date of Service July 08, 2022 Assessment & Plan (1) NSTEMI (non-ST elevated myocardial infarction): (2) CAD (coronary artery disease): (3) Hypertension: (4) Hyperlipidemia: (5) CKD (chronic kidney disease) stage 4, GFR 15-29 ml/min: (6) Statin intolerance: Plan 77-year-old male who has significant PMH of CAD with history of CABG x3 in 2007 MEDINA to LAD, SVG to diagonal, SVG to OM, mitral and tricuspid regurgitation, HTN, CKD stage III-IV, with baseline creatinine of 3.6, history of renal artery stenosis status post stent, and HLD presented to ED 07/08 secondary to chest tightness/sob x 5 days. He is being managed for the following: NSTEMI CAD hx of CABG in 2007 ( MEDINA to LAD, SVG to Diagonal, SVG to OM), hx of ROMINA x 2 in 2017 HTN HLD comes in w/ chest tightness/MC x 5 days. Trops elevated in 3Ks and EKG w/ RBBB and ST depression in I and aVL at presentation. s/p full dose ASA in ED; started on heparin drip 07/07 ECHO: EF of 50 to 55%, moderate concentric LVH. Base inferior wall thinned and severely hypokinetic to akinetic. Base and mid posterior wall is hypokinetic. No further Chest pain, c/w hep gtt. c/w home asa, plavix (statin intolerance - leg pain; takes repatha) Cardio on board, metoprolol uptitrated, c/w low dose nitrates. Patient opted for conservative medical therapy over diagnostic coronary angiography plus minus intervention. Patient states that he does not want any risks that pushes him towards dialysis. continue to monitor over telemetry. EKG w/ chest pain. CKD-4 baseline cr 3.6 bun/cr stable monitor, avoid nephrotoxic agents Hyperkalemia: place on low k diet, monitor bmp. Stable/slightly lower than yesterday. DVT ppx: IV heparin Dispo: admit to tele DNR/DNI Admission and Anticipated Discharge Date Admission Date: July 07, 2022 Physical Exam Physical Exam: GENERAL: Alert and oriented x3. NAD, on RA. HEENT: No pallor, no icterus. Pupils equal, round and reactive to light. Oral mucosa moist. NECK: No JVD, no neck masses. HEART: S1 and S2 heard. Regular rate and rhythm. systolic murmur aortic and pulmonic area, no gallop. RESPIRATORY SYSTEM: Normal AP diameter. No accessory muscle use. No wheezing, no crackles. ABDOMEN: Soft, bowel sounds present, nontender, no distention. CENTRAL NERVOUS SYSTEM: No facial droop. Speech is clear. Obeys simple commands. Moves extremities. EXTREMITIES: No edema, no erythema seen. Results & Data Results & Data ([facility]) Vital Signs (Past 12 Hours) Vital Signs Temp Pulse Pulse Resp BP BP Pulse Ox 07/08/22 11:37 36.7 C 60 18 158/63 H 99 07/08/22 07:57 07/08/22 07:14 70 07/08/22 07:09 36.8 C 66 18 122/67 97 07/08/22 04:12 36.8 C 64 16 117/61 98 O2 Del Method 07/08/22 11:37 Room Air 07/08/22 07:57 Room Air 07/08/22 07:14 07/08/22 07:09 Room Air 07/08/22 04:12 Room Air
[2022-07-08 17:28] LABS: Partial Thromboplastin Ratio 1.8
[2022-07-08 17:31] LABS: Partial Thromboplastin Time 50.6 Seconds (21.0-31.0)
[2022-07-08] MEDS: HEPARIN SODIUM/DEXTROSE 25,000 UNITS/500 ML BAG IV SCH (17:58)
--- NOTE | 2022-07-08 22:41 | Electrocardiogram Report ---
Test Reason : Blood Pressure : / mmHG Vent. Rate : 080 BPM Atrial Rate : 081 BPM P-R Int : 166 ms QRS Dur : 128 ms QT Int : 416 ms P-R-T Axes : 044 098 093 degrees QTc Int : 479 ms Poor data quality, interpretation may be adversely affected Sinus rhythm with Premature atrial complexes Right bundle branch block Inferior infarct , age undetermined Nonspecific T wave abnormality Abnormal ECG No previous ECGs available Confirmed by David Rutherford ([id number]) on 07/08/2022 10:40:44 PM Referred By: Benjamín Pradhna Confirmed By:David Rutherford
--- NOTE | 2022-07-08 22:45 | Electrocardiogram Report ---
Test Reason : Blood Pressure : / mmHG Vent. Rate : 067 BPM Atrial Rate : 067 BPM P-R Int : 160 ms QRS Dur : 134 ms QT Int : 436 ms P-R-T Axes : 014 059 125 degrees QTc Int : 460 ms Normal sinus rhythm Right bundle branch block Inferior infarct (cited on or before 07-JUL-2022) Abnormal ECG When compared with ECG of 07-JUL-2022 11:20, T wave inversion more evident in Lateral leads Confirmed by David Rutherford ([id number]) on 07/08/2022 10:45:43 PM Referred By: REFERRED SELF Confirmed By:David Rutherford
--- NOTE | 2022-07-08 22:57 | Electrocardiogram Report ---
Test Reason : Blood Pressure : / mmHG Vent. Rate : 067 BPM Atrial Rate : 067 BPM P-R Int : 168 ms QRS Dur : 140 ms QT Int : 440 ms P-R-T Axes : 025 063 124 degrees QTc Int : 464 ms Normal sinus rhythm Right bundle branch block Inferior infarct (cited on or before 07-JUL-2022) Abnormal ECG When compared with ECG of 07-JUL-2022 11:33, T wave inversion now evident in Anterior leads Confirmed by David Rutherford ([id number]) on 07/08/2022 10:57:19 PM Referred By: REFERRED SELF Confirmed By:David Rutherford
[2022-07-08] MEDS ORDERED: NITROGLYCERIN SL 0.4 MG/TAB TAB ONE (22:59)
[2022-07-08] MEDS: NITROGLYCERIN SL 0.4 MG/TAB TAB SL PRN ×2 (23:00→23:05)
[2022-07-08] MEDS ORDERED: HYDROmorphone INJ 0.5 MG/0.5 ML SYR IV PRN (23:00)
[2022-07-08] MEDS ORDERED: traMADol HCL 50 MG TABLET PO PRN (23:00)
[2022-07-08] MEDS ORDERED: LABETALOL HCL IV 5 MG/ML 20ML IV STA (23:01)
[2022-07-08] MEDS ORDERED: LABETALOL HCL IV 5 MG/ML 20ML IV ONE (23:09)
[2022-07-08] MEDS ORDERED: PROMETHAZINE HCL 6.25 MG in SODIUM CHLORIDE 0.9% 50 ML IV PRN (23:26)
[2022-07-09] MEDS: ACETAMINOPHEN 325 MG TAB PO PRN ×2 (03:24→08:14)
--- NOTE | 2022-07-09 05:51 | Electrocardiogram Report ---
Test Reason : Blood Pressure : / mmHG Vent. Rate : 061 BPM Atrial Rate : 061 BPM P-R Int : 172 ms QRS Dur : 134 ms QT Int : 450 ms P-R-T Axes : 026 066 127 degrees QTc Int : 453 ms Poor data quality, interpretation may be adversely affected Normal sinus rhythm Right bundle branch block Possible Inferior infarct (cited on or before 07-JUL-2022) Abnormal ECG When compared with ECG of 07-JUL-2022 14:22, No significant change was found Confirmed by David Rutherford ([id number]) on 07/09/2022 5:51:14 AM Referred By: REFERRED SELF Confirmed By:Dvaid Rutherford
[2022-07-09] MEDS: ISOSORBIDE DINITRATE 20 MG TAB PO SCH ×3 (06:18→19:52)
[2022-07-09 07:03] LABS: BUN Creatinine Ratio 18.1 (10-20); Calcium 8.4 mg/dl (8.5-10.1); Creatinine Clr Calc Pharmacy 15.8 ml/min; Est GFR (African American) 17.3 ml/min; Est GFR (Non-African American) 14.9 ml/min; Magnesium 1.9 mg/dl (1.7-2.4); Phosphorus 4.5 mg/dl (2.5-4.9); Potassium 5.1 mmol/L (3.5-5.1)
[2022-07-09 07:30] LABS: Partial Thromboplastin Ratio 1.7
[2022-07-09] MEDS: ASPIRIN 81 MG CHEW PO SCH (08:52)
[2022-07-09] MEDS: CLOPIDOGREL BISULFATE 75 MG TAB PO SCH (08:53)
[2022-07-09] MEDS: METOPROLOL SUCC 25MG EXT REL TAB PO SCH ×2 (08:54→19:53)
[2022-07-09] MEDS: CALCITRIOL 0.25 MCG CAPSULE PO SCH (08:55)
[2022-07-09] MEDS ORDERED: amLODIPine BESYLATE 5 MG TAB PO SCH (09:00)
--- NOTE | 2022-07-09 09:12 | Cardiology Progress Note ---
Date of Service July 09, 2022 Assessment & Plan (1) NSTEMI (non-ST elevated myocardial infarction): (2) History of coronary artery bypass graft: (3) CKD (chronic kidney disease) stage 4, GFR 15-29 ml/min: (4) Renovascular hypertension: (5) Hyperlipidemia: (6) Statin intolerance: Plan Patient is a 77-year-old male with very complex past history of ischemic heart disease with prior coronary bypass grafting in 2007, coronary intervention 2018 presents with symptoms of crescendo angina and worsening complaints of chest pain and shortness of breath of at least 5 days duration. Patient noted multiple episodes of sustained discomfort after episodes of exertion Troponins consistent with non-ST segment elevation myocardial infarction EKG with chronic right bundle branch block but more pronounced lateral ST depression on presentation Echocardiogram with similar ejection fraction to past studies though with more pronounced by description wall motion abnormalities inferior posteriorly. Patient multiple culprits for possible complaints including prior coronary intervention vessel right coronary artery 2018 as well as vein graft occlusion of OM or diagonal. Echocardiogram and EKGs do not suggest MEDINA graft compromise but not excluded I have discussed options and management with patient. Choices include conservative medical therapy versus proceeding to diagnostic coronary angiography and intervention if warranted. Patient will interventions or catheterizations performed at tertiary care center, patient request [place] at site of previous interventions. Potential risks of worsening renal insufficiency discussed After shared decision making we will proceed with initial medical therapies however if symptoms recur or exercise capacity not improved posttreatment with transfer to [place] for further investigation Of note patient with recurrent symptoms at rest last evening despite adequate medical therapies and anticoagulation Plan Continue IV heparin, continue aspirin and clopidogrel Increase metoprolol succinate slightly 25 mg a.m. 12.5 mg p.m. Increase isosorbide dinitrate to 20 3 times daily, reduce amlodipine to 5 mg/day Given profound recurrent of symptoms last night at rest will need transfer to tertiary center. Patient request as noted [facility] / Dr. Landeros previously cared for patient [facility] transfer center contacted We will begin IV hydration Admission and Anticipated Discharge Date Admission Date: July 07, 2022 Subjective Patient seen and examined, chart, medications, telemetry reviewed. Patient notes having felt well yesterday but last evening developed acute onset of chest pressure shortness of breath with elevated heart rate and blood pres sure relieved by sublingual nitroglycerin episode occurring at rest in bed. Currently comfortable without complaint. Physical Exam Constitutional: WD/WN, vitals as above no acute distress Eyes: PERRL, conjunctivae normal, anicteric sclerae ENMT: external ear and nose normal, oropharynx normal Neck: trachea midline, no thyromegaly Respiratory: normal respiratory effort, lungs clear to auscultation Cardiovascular: Rate/Rhythm: regular rate and regular rhythm Heart Sounds: + murmur (Grade 2/6 systolic murmur heard throughout the precordium no diastolic) Vessels: no JVD Extremities: no edema Gastrointestinal (Abdomen): normal bowel sounds, soft, nontender, no hepatosplenomegaly Musculoskeletal: no cyanosis or clubbing, extremities motor strength 5/5 Psychiatric: A+Ox3, euthymic affect Results & Data ([facility]) Vital Signs (Past 12 Hours) Vital Signs Temp Pulse Resp BP Pulse Ox O2 Del Method O2 Flow Rate 07/09/22 08:47 67 137/69 07/09/22 08:00 Room Air, Nasal Cannula 2 07/09/22 07:23 36.7 C 65 16 110/65 95 Room Air 07/09/22 07:03 36.6 C 66 17 102/58 L 96 Room Air 07/09/22 06:17 36.6 C 61 15 142/72 H 96 Room Air 07/09/22 02:44 36.5 C 61 18 157/72 H 97 Room Air 07/09/22 00:44 63 16 143/72 H 98 Room Air 07/09/22 00:07 72 18 167/75 H 98 Room Air 07/08/22 23:14 78 18 135/71 96 Room Air 07/08/22 23:05 82 18 162/84 H 96 Room Air 07/08/22 23:00 89 18 205/99 H 98 Room Air 07/08/22 22:27 Room Air Laboratory Results Laboratory Results - last 24 hr 07/08/22 07/09/22 07/09/22 16:17 00:18 05:31 APTT 50.6 H* 47.0 H* PTT Ratio 1.8 1.7 Sodium Potassium Chloride Carbon Dioxide Anion Gap BUN Creatinine Est Cr Clr Drug Dosing Est GFR ( Amer) Est GFR (Non-Af Amer) BUN/Creatinine Ratio Glucose Calcium Phosphorus Magnesium Troponin I High Sens 1614.0 H* D 07/09/22 05:31 APTT PTT Ratio Sodium 137 Potassium 5.1 Chloride 109 H Carbon Dioxide 17 L Anion Gap 11 BUN 67 H Creatinine 3.71 H Est Cr Clr Drug Dosing 15.8 Est GFR ( Amer) 17.3 Est GFR (Non-Af Amer) 14.9 BUN/Creatinine Ratio 18.1 Glucose 94 Calcium 8.4 L Phosphorus 4.5 Magnesium 1.9 Troponin I High Sens
[2022-07-09] MEDS: SODIUM CHLORIDE 0.9% 500 ML IV SCH ×3 (09:55→21:48)
[2022-07-09] MEDS: HEPARIN SODIUM/DEXTROSE 25,000 UNITS/500 ML BAG IV SCH ×2 (14:49→21:48)
--- NOTE | 2022-07-09 15:56 | Discharge Summary ---
Date of Service July 09, 2022 Admission HPI Per Admitting Provider This is a 77-year-old male who has significant PMH of CAD with history of CABG x3 in 2007 MEDINA to LAD, SVG to diagonal, SVG to OM, mitral and tricuspid regurgitation, HTN, CKD stage III-IV, with baseline creatinine of 3.6, history of renal artery stenosis status post stent, and HLD who presents to ED secondary to chest tightness/sob x 5 days. Sx started Friday evening where he got chest tightness and sob. He further complains of heart racing. These sx would come and go and would resolve if just resting. Typically he walks 3-4 miles every day. Even with just minimal exertion he was getting chest tightness and sob. Sx seemed to be worse at night. Over past several months he noted to be more SOB with walking and even more so up hill. Now even with 100 yards he gets chest tightness. Sx are mostly substernal and does occasionally get pain to R arm. He describes pain Yesterday he went to mail box and had to stop ~ 20 times to catch breath. He denies any dizziness, lightheaded, syncope, vision changes. uri sx, cough, hemoptysis, n/v/d, abd pain, change in bowel or urinary habits. He was seen and evaluated at [facility] on Friday. They wanted him to be admitted; however they told him they couldn't do anything at this hospital due to no coronary intervention. He then went to see [facility] to get records to Dr. Humphreys. Of significance patient does have previous history of CABG x3 in 2007. He further underwent cardiac catheterization at [facility] on 02/25 which showed severe three-vessel makah CAD with severe stenosis of vein graft to diagonal, severe stenosis of non-bypassed calcified right coronary, and patent MEDINA to LAD and patent vein graft to obtuse marginal. On 04/10/2028 he underwent a successful rotational atherectomy, angioplasty, stenting of the distal and mid right coronary artery with insertion of 2 drug-eluting stents. He is currently under the cardiac care of Dr. Humphreys. He does have history of CKD for which she follows Dr. Quiñones of nephrology. Last echocardiogram per recent cardiology note was on 08/30/2021 which revealed EF 50 to 54%, mild LVH, left atrium mildly enlarged, aortic valve mildly calcified, mild mitral regurg and mild tricuspid regurg. He previously was having leg pain, but this has since resolved after stopping statin and switching to repatha. In ED pt remained hemodynamically stable. He is currently chest pain free. His ECG revealed st and t wave changes in lateral leads. His initial trop was 3246.8, bun 60, cr 2.40 and K 5.3. He took a full strength asa today and was placed on IV heparin and nitro paste. Admission Exam Per Admitting Provider Constitutional: WD/WN, vitals as above, NAD, sitting up in bed, pleasant, conversing easily Respiratory: Bilateral vesicular breath sound Cardiovascular: RRR, no murmur, no edema Vessels: no JVD or carotid bruit Chest: Scar present Abdomen: normal bowel sounds, soft, nontender, no hepatosplenomegaly Musculoskeletal: no cyanosis or clubbing, extremities motor strength 5/5 Skin: no rashes, warm and dry normal turgor Neurologic: PERRL, EOMI, accommodation nl, no face palsy, no dysarthria CN's II- XI intact bilaterally and moves all extremities Psychiatric: A+Ox3, euthymic affect Lymphatic: no cervical or axillary lymphadenopathy : deferred Principal Diagnosis NSTEMI History of coronary artery bypass graft CKD stage IV Renovascular hypertension Statin intolerance Discharge Exam GENERAL: Alert and oriented x3. NAD, on RA. HEENT: No pallor, no icterus. Pupils equal, round and reactive to light. Oral mucosa moist. NECK: No JVD, no neck masses. HEART: S1 and S2 heard. Regular rate and rhythm. systolic murmur aortic and pulmonic area, no gallop. RESPIRATORY SYSTEM: Normal AP diameter. No accessory muscle use. No wheezing, no crackles. ABDOMEN: Soft, bowel sounds present, nontender, no distention. CENTRAL NERVOUS SYSTEM: No facial droop. Speech is clear. Obeys simple commands. Moves extremities. EXTREMITIES: No edema, no erythema seen. Discharge Data Allergies Allergy/AdvReac Type Severity Reaction Status Date / Time No Known Drug Allergies Allergy Unknown . Verified 07/07/22 14:22 Consultations 07/07/22 14:17 Consult Cardiology Routine Hospital Course (1) NSTEMI (non-ST elevated myocardial infarction): (2) CAD (coronary artery disease): (3) Hypertension: (4) Hyperlipidemia: (5) CKD (chronic kidney disease) stage 4, GFR 15-29 ml/min: (6) Statin intolerance: Plan 77-year-old male who has significant PMH of CAD with history of CABG x3 in 2007 MEDINA to LAD, SVG to diagonal, SVG to OM, mitral and tricuspid regurgitation, HTN, CKD stage III-IV, with baseline creatinine of 3.6, history of renal artery stenosis status post stent, and HLD presented to ED 07/08 secondary to chest tightness/sob x 5 days. He was managed for the following: NSTEMI CAD hx of CABG in 2007 ( MEDINA to LAD, SVG to Diagonal, SVG to OM), hx of ROMINA x 2 in 2017 HTN HLD comes in w/ chest tightness/MC x 5 days. Trops elevated in 3Ks and EKG w/ RBBB and ST depression in I and aVL at presentation. s/p full dose ASA in ED; started on heparin drip 07/07 ECHO: EF of 50 to 55%, moderate concentric LVH. Base inferior wall thinned and severely hypokinetic to akinetic. Base and mid posterior wall is hypokinetic. Recurrent chest pain overnight despite nitro -- d/w cardio, plan to tranfer for cath at tertiary center. Metoprolol succinate increased to 25 mg in AM and 12.5 mg in PM. Isosorbide dinitrate 20 mg TID, amlodipine reduced to 5 mg/day. c/w home asa, plavix (statin intolerance - leg pain; takes repatha) Pt has been accepted at [facility]; awaiting transport. CKD-4 baseline cr 3.6 bun/cr stable monitor, avoid nephrotoxic agents Hyperkalemia: place on low k diet, monitor bmp. Stable/slightly lower than yesterday. DVT ppx: IV heparin Dispo: admit to tele DNR/DNI Patient being discharged to [facility], already assigned bed, awaiting transport. Will need heparin drip running during transport. [facility] Attestation I certify that this patient is under my care and that I, or a physicians cement tester assistant working with me, had a face to-face encounter that meets the [id number] encounter requirements with this patient. The encounter with the patient was in whole, or in part, for the following medical condition, which is the primary reason for home health care (list medical condition): I certify that, based on my findings, the following services are medically necessary home health services: My clinical findings support the need for the above services because: Further, I certify that my clinical findings support that this patient is homebound (i.e. absences from home require considerable and taxing effort and are for medical reasons or congregation services or infrequently or of short duration when for other reasons) because: Certification for Home Health Services: Based on the above findings, I certify that this patient is confined to the home and needs intermittent intermediate care, physical therapy and/or speech therapy or continues to need occupational therapy. The patient is under my care, and I have initiated the establishment of the plan of care. This patient will be followed by a physician who will periodically review the plan of care. Total Time Total Time Spent Total Time Spent (In Minutes): 45 Discharge Plan Discharge Items Patient Disposition: Transfer Acute Care Hospital Reason For Visit: NSTEMI Discharge Diagnosis: NSTEMI History of coronary artery bypass graft CKD stage IV Renovascular hypertension Statin intolerance Activity: As commented below Activity Comment: as per tertiary care center recs. Non-emergency contact: Primary Care Provider Call non-emergency contact if: you have any medication questions Follow-up/Referrals: David Narayanan DO [Primary Care Provider] - Diet: Other - See Diet Comment Diet Comment: NPO Addtl Attending Provider Instructions: You are being discharged to [facility] for diagnostic plus minus interventional cardiac cath given your history of CABG and complicated cardiac history. Follow-up with the recommendations. Inpatient medications are copied and pasted below for the sake of comparison. In the discharge med rec, your prior home medications are continued as it were. Current Inpatient Medications Acetaminophen (Acetaminophen 325 Mg Tab) 650 mg PO Q4H PRN PRN Reason: Pain or Fever Stop: 08/06/22 15:27 Last Admin: 07/09/22 08:14 Dose: 650 mg Amlodipine Besylate (Amlodipine Besylate 5 Mg Tab) 5 mg PO QAM [facility] Stop: 08/08/22 08:59 Last Admin: 07/09/22 08:52 Dose: 5 mg Aspirin (Aspirin 81 Mg Chew) 81 mg PO DAILY USHA Stop: 08/07/22 08:59 Last Admin: 07/09/22 08:52 Dose: 81 mg Calcitriol (Calcitriol 0.25 Mcg Capsule) 0.125 mcg PO DAILY [facility] Stop: 08/07/22 08:59 Last Admin: 07/09/22 08:55 Dose: 0.125 mcg Clopidogrel Bisulfate (Clopidogrel Bisulfate 75 Mg Tab) 75 mg PO QAM [facility] Stop: 08/07/22 08:59 Last Admin: 07/09/22 08:53 Dose: 75 mg Hydromorphone HCl (Hydromorphone Inj 0.5 Mg/0.5 Ml Syr) 0.25 mg IV Q6H PRN PRN Reason: Pain Stop: 07/22/22 22:59 Heparin Sodium/Dextrose (Heparin Sodium/Dextrose) 25,000 units in 500 mls @ 18 mls/hr IV .Q24H [facility]; Protocol Stop: 08/06/22 13:44 Last Admin: 07/09/22 14:49 Dose: 900 units/hr, 18 mls/hr Promethazine HCl 6.25 mg/ (Sodium Chloride) 50.25 mls @ 201 mls/hr IV Q6H PRN PRN Reason: Nausea And Vomiting Stop: 08/07/22 23:25 Sodium Chloride (Nss) 500 mls @ 70 mls/hr IV .Q7H9M [facility] Stop: 08/08/22 09:29 Last Admin: 07/09/22 09:55 Dose: 70 mls/hr Isosorbide Dinitrate (Isosorbide Dinitrate 20 Mg Tab) 20 mg PO TID [facility] Stop: 08/08/22 13:59 Last Admin: 07/09/22 14:49 Dose: 20 mg Metoprolol Succinate (Metoprolol Succ 25mg Ext Rel Tab) 25 mg PO DAILY [facility] Stop: 08/07/22 08:59 Last Admin: 07/09/22 08:54 Dose: 25 mg Metoprolol Succinate (Metoprolol Succ 25mg Ext Rel Tab) 12.5 mg PO QPM [facility] Stop: 08/07/22 20:59 Last Admin: 07/08/22 20:25 Dose: 12.5 mg Nitroglycerin (Nitroglycerin Sl 0.4 Mg/Tab Tab) 0.4 mg SL PRN PRN PRN Reason: cp Stop: 08/07/22 22:58 Last Admin: 07/08/22 23:05 Dose: 0.4 mg Polyethylene Glycol (Polyethylene (Miralax) 17 Gm Pack) 17 gm PO DAILY PRN PRN Reason: Constipation Stop: 08/06/22 15:27 Tramadol HCl (Tramadol Hcl 50 Mg Tablet) 25 - 50 mg PO Q4H PRN PRN Reason: Pain Stop: 08/07/22 22:59 Vitamin D (Cholecalciferol 400 Units 10 Mcg Tab) 400 units PO Q2D@0900 USHA Stop: 08/07/22 08:59 Last Admin: 07/08/22 07:29 Dose: 400 units Pending Studies at Discharge: No Stand-Alone Forms: My [facility] Skilled Items Patient informed of condition?: Yes DNR: Yes Discharge Level of Care: Other Communicable Disease: No Discharge Prognosis: Other Lines: Peripheral IV Urinary Catheter: No Medications and DC Order Prescriptions: Continued clopidogrel 75 mg Tablet 75 mg PO QAM amlodipine 10 mg Tablet 10 mg PO QAM Repatha SureClick 140 mg/mL pen injector 140 mg SUBCUT USEASDIRECTD Rx Instructions: Every other week, next dose 07/07/22 aspirin 81 mg Tablet,Chewable 81 mg PO DAILY cholecalciferol (vitamin D3) [Vitamin D3] 10 mcg (400 unit) Capsule 10 mcg PO Q OTHER DAY metoprolol succinate 25 mg tablet extended release 24 hr 25 mg PO DAILY calcitriol 0.25 mcg capsule 0.125 mcg PO DAILY Krames/Other Patient Handouts: Prediabetes, 5 Steps for Eating Healthier Admission Data Admit Date/Time: 07/07/22 14:17 Attending Provider: Zachary Proctor Admit Provider: Stef Avina Primary Care Provider: David Narayanan Other Providers: Oliver Giraldo
[2022-07-09] MEDS ORDERED: LABETALOL HCL IV 5 MG/ML 20ML IV STA (20:37)
[2022-07-09] MEDS: NITROGLYCERIN SL 0.4 MG/TAB TAB SL PRN (20:38)
[2022-07-09] MEDS ORDERED: LORazepam 0.5 MG TAB PO PRN (20:41)
--- NOTE | 2022-07-10 06:13 | Electrocardiogram Report ---
Test Reason : Blood Pressure : / mmHG Vent. Rate : 089 BPM Atrial Rate : 089 BPM P-R Int : 184 ms QRS Dur : 142 ms QT Int : 404 ms P-R-T Axes : 062 093 032 degrees QTc Int : 491 ms Poor data quality, interpretation may be adversely affected Normal sinus rhythm Right bundle branch block Abnormal ECG When compared with ECG of 08-JUL-2022 05:34, Borderline criteria for Inferior infarct are no longer Present T wave inversion no longer evident in Lateral leads Confirmed by David Rutherford ([id number]) on 07/10/2022 6:13:03 AM Referred By: REFERRED SELF Confirmed By:David Rutherford
--- NOTE | 2022-07-11 06:00 | Electrocardiogram Report ---
Test Reason : Blood Pressure : / mmHG Vent. Rate : 065 BPM Atrial Rate : 065 BPM P-R Int : 180 ms QRS Dur : 132 ms QT Int : 446 ms P-R-T Axes : 034 058 133 degrees QTc Int : 463 ms Normal sinus rhythm Right bundle branch block Inferior infarct , age undetermined Abnormal ECG When compared with ECG of 08-JUL-2022 23:01, Inferior infarct is now Present T wave inversion no longer evident in Anterior leads T wave inversion now evident in Lateral leads Confirmed by David Rutherford ([id number]) on 07/11/2022 5:59:52 AM Referred By: REFERRED SELF Confirmed By:David Rutherford
--- NOTE | 2022-07-12 05:56 | Electrocardiogram Report ---
Test Reason : Blood Pressure : / mmHG Vent. Rate : 078 BPM Atrial Rate : 078 BPM P-R Int : 170 ms QRS Dur : 142 ms QT Int : 420 ms P-R-T Axes : 060 044 028 degrees QTc Int : 478 ms Normal sinus rhythm Possible Left atrial enlargement Right bundle branch block Inferior infarct (cited on or before 07-JUL-2022) Abnormal ECG When compared with ECG of 09-JUL-2022 05:43, T wave inversion less evident in Lateral leads Confirmed by David Rutherford ([id number]) on 07/12/2022 5:56:43 AM Referred By: REFERRED SELF Confirmed By:David Rutherford
== END 2022-07-10 00:56 | disposition short-term general hospital (02) | DRG 281 ==
LOC: ED 11:08 → 2S 14:17 → SUATTDRO 14:17 → 2S 15:30